=== PATIENT | male | born 1960 | race Caucasian/White ===

== ENCOUNTER 2022-02-17 08:57 | Emergency (ER) | payer OTHER ==
[~2022-02-17] VITALS: Ht 177.8 cm; Wt 88.5 kg
[2022-02-17] MEDS ORDERED: FLOMAX0.4 MG PO (13:55)
[2022-02-17] MEDS ORDERED: HYDROCODON-ACE1 EA11 PO (13:55)
[2022-02-17] MEDS ORDERED: ONDANSETRON ODT8 MG PO (13:55)
== END 2022-02-17 14:09 | disposition home or self-care (01) ==
LOC: ED 08:57
DX: N13.2 Hydronephrosis with renal and ureteral calculous obstruction (principal)
CPT/HCPCS: 36415; 51798; 74176; 80053; 81001; 85025; 99284-25; A9270; J1170; J1885; J2405; J7030